=== PATIENT | male | born 1980 | race Caucasian/White ===

== ENCOUNTER 2019-03-16 13:02 | Emergency (ER) | payer OTHER ==
[2019-03-16 13:15] VITALS: BP 120/83; PULSE 62; TEMP 98.3; BMI 25.1
[2019-03-16] MEDS ORDERED: DIPHTH,PERTUSS(ACELL),TET 0.5 ML DISP.SYRIN IM ONE ×2 (13:17→13:32)
--- NOTE | 2019-03-16 13:17 | PDOC ---
History of Present Illness - General Chief Complaint: Injury Stated Complaint: LEFT HAND INJURY Time Seen by Provider: 03/16/19 13:06 History Source: Patient Exam Limitations: No Limitations - History of Present Illness Initial Comments: 39 yo M presents with L hand pain s/p injury at work yesterday. He states that he fell, landed with his left hand on a piece of steel. He sustained a laceration to the L 4th finger. He has kept it clean with soap and water. Today he noted that his knuckles and 3rd/4th fingers are swollen, so he presented for evaluation. He is able to move his fingers. He took ibuprofen for pain. Uncertain of last tetanus booster. Past History - Past Medical History Allergies/Adverse Reactions: Allergies Allergy/AdvReac Type Severity Reaction Status Date / Time No Known Allergies Allergy Verified 03/16/19 13:08 Home Medications: Ambulatory Orders No Home Medications 0 dose .ROUTE UTDICT 10/04/13 Cephalexin Monohydrate [Keflex -] 500 mg PO Q6H #28 capsule 03/16/19 Sulfamethoxazole/Trimethoprim [Bactrim Ds -] 1 tab PO BID #14 tablet 03/16/19 Asthma: No COPD: No Diabetes: No HTN: No - Immunization History Immunization Up to Date: Yes - Suicide/Smoking/Psychosocial Hx Smoking Status: Yes Smoking History: Current some day smoker Years of Tobacco Use: 8 Number of Cigarettes Smoked Daily: 0 Information on smoking cessation initiated: Yes 'Breaking Loose' booklet given: 10/04/13 Hx Alcohol Use: Yes (OCCASIONAL) Drug/Substance Use Hx: No Substance Use Type: None Review of Systems - Review of Systems Able to Perform ROS?: Yes Comments:: GENERAL/CONSTITUTIONAL: No fever or chills. No weakness. HEAD, EYES, EARS, NOSE AND THROAT: No change in vision. No ear pain or discharge. No sore throat. CARDIOVASCULAR: No chest pain or shortness of breath. RESPIRATORY: No cough, wheezing, or hemoptysis. GASTROINTESTINAL: No nausea, vomiting, diarrhea or constipation. GENITOURINARY: No dysuria, frequency, or change in urination. MUSCULOSKELETAL: +L hand swelling with skin abrasion. No neck or back pain. SKIN: No rash. NEUROLOGIC: No headache, vertigo, loss of consciousness, or change in strength/ sensation. ENDOCRINE: No increased thirst. No abnormal weight change. HEMATOLOGIC/LYMPHATIC: No anemia, easy bleeding, or history of blood clots. ALLERGIC/IMMUNOLOGIC: No hives or skin allergy. *Physical Exam - Vital Signs Last Vital Signs Temp Pulse Resp BP Pulse Ox 98.3 F 62 16 120/83 99 03/16/19 13:04 03/16/19 13:04 03/16/19 13:04 03/16/19 13:04 03/16/19 13:04 - Physical Exam Comments: GENERAL: Awake, alert, and fully oriented, in no acute distress HEAD: No signs of trauma EXTREMITIES: L hand with linear skin avulsion to the 4th finger, no drainage. + Edema to the 4th finger and to the 3rd and 4th MCP joints with slight erythema. Dec ROM of 3rd and 4th finger due to swelling. Remainder of extremities with normal range of motion, no edema. No clubbing or cyanosis. No cords, erythema, or tenderness NEUROLOGICAL: Cranial nerves II through XII grossly intact. Normal speech, normal gait. Motor and sensation intact SKIN: Warm, Dry, normal turgor, no rashes or lesions noted. ED Treatment Course - RADIOLOGY Radiology Studies Ordered: Category Date Time Status HAND- LEFT [RAD] Stat Radiology 03/16/19 13:15 Ordered Medical Decision Making - Medical Decision Making Tdap given in ED. Swelling is likely a localized infection, as he was cut by a piece of steel. There is no puncture wound, but there is a linear skin avulsion that has started to form some granulation tissue. Bacitracin applied, gauze dressing. PO abx given to cover skin lauro and MRSA. I do not suspect tenosynovitis at this time, as he is able to range the finger and it is not locked in 1 position. Counseled him to return if the swelling worsens, does not improve, or if he develops lymphatic streaking. *DC/Admit/Observation/Transfer Diagnosis at time of Disposition: Wound infection Cellulitis Qualifiers: Site of cellulitis: extremity Site of cellulitis of extremity: finger Laterality: left Qualified Code(s): L03.012 - Cellulitis of left finger - Discharge Dispostion Disposition: HOME Condition at time of disposition: Stable Decision to Admit order: No - Prescriptions Prescriptions: Cephalexin Monohydrate [Keflex -] 500 mg PO Q6H #28 capsule Sulfamethoxazole/Trimethoprim [Bactrim Ds -] 1 tab PO BID #14 tablet - Referrals - Patient Instructions Printed Discharge Instructions: DI for Cellulitis -- Adult, DI for Wound Infection - Post Discharge Activity Forms/Work/School Notes: Back to Work
[2019-03-16] MEDS ORDERED: SULFAMETHOXAZOLE/TRIMETHOPRIM 800MG/160MG D.S. TABLET PO ONE (13:41)
[2019-03-16] MEDS ORDERED: CEPHALEXIN MONOHYDRATE 500 MG CAPSULE (UD) PO ONE (13:41)
[2019-03-16] MEDS ORDERED: CEPHALEXIN MONOHYDRATE 500 MG CAPSULE (UD) ONE (13:45)
[2019-03-16] MEDS ORDERED: SULFAMETHOXAZOLE/TRIMETHOPRIM 800MG/160MG D.S. TABLET ONE (13:45)
== END 2019-03-16 13:52 | disposition home or self-care (01) ==
LOC: FER 13:02
PROC: 3E0234Z Introduction of Serum, Toxoid and Vaccine into Muscle, Percutaneous Approach (ICD-10-PCS; principal; 2019-03-16)
DX: S61.215A Laceration without foreign body of left ring finger without damage to nail, initial encounter (principal); L03.012 Cellulitis of left finger; L08.9 Local infection of the skin and subcutaneous tissue, unspecified; W18.00XA Striking against unspecified object with subsequent fall, initial encounter; Y93.89 Activity, other specified; Y92.89 Other specified places as the place of occurrence of the external cause; Y99.0 Civilian activity done for income or pay; F17.210 Nicotine dependence, cigarettes, uncomplicated
CPT/HCPCS: 73130-TC-LT-FY; 90715; 99281-25

== ENCOUNTER 2022-03-01 16:20 | Emergency (ER) | payer OTHER ==
[2022-03-01] MEDS ORDERED: SODIUM CHLORIDE 0.9% 500 ML INFUS.BAG IV ONE (16:40)
[2022-03-01] MEDS ORDERED: MAG HYDROX/AL HYDROX/SIMETH 30 ML UNIT-DOSE CUP PO ONE (16:50)
[2022-03-01] MEDS ORDERED: FAMOTIDINE 20 MG TABLET PO ONE (16:50)
[2022-03-01] MEDS ORDERED: FAMOTIDINE 20 MG/50 ML IVPB 20 MG/50 ML MG IVPB ONE ×2 (16:51→16:56)
[2022-03-01 16:52] VITALS: BMI 22.9
[2022-03-01] MEDS ORDERED: MAG HYDROX/AL HYDROX/SIMETH 30 ML UNIT-DOSE CUP ONE (16:55)
[2022-03-01 17:14] LABS: HEMATOCRIT 44.3 % (35.4-49); HEMOGLOBIN 15.5 G/dL (11.7-16.9); MCH 30.4 pg (25.7-33.7); MCHC 34.9 g/dl (32.0-35.9); MEAN CELL VOLUME 87.1 fl (80-96); MEAN PLT VOLUME 8.7 fl (7.5-11.1); PLATELET COUNT 211.1 10^3/uL (134-434); RBC 5.09 10^6/uL (4.00-5.60); WHITE BLOOD COUNT 4.5 10^3/uL (4.0-10.8)
[2022-03-01 17:22] LABS: INR 1.07 (0.83-1.09); PROTHROMBIN TIME (PATIENT) 12.3 SEC (9.7-13.0)
[2022-03-01 17:28] LABS: ALBUMIN 4.5 g/dl (3.4-5.0); BILIRUBIN,TOTAL 2.3 mg/dl (0.2-1); CALCIUM 9.4 mg/dl (8.5-10); MAGNESIUM 2.1 mg/dL (1.8-2.4); TOT PROT 7.2 g/dl (6.4-8.2)
[2022-03-01 17:42] LABS: PLATELET ESTIMATE ADEQUATE
[2022-03-01 18:54] VITALS: BP 117/62; PULSE 65; TEMP 98.6
== END 2022-03-01 19:00 | disposition home or self-care (01) ==
LOC: FER 16:20
PROC: 3E033GC Introduction of Other Therapeutic Substance into Peripheral Vein, Percutaneous Approach (ICD-10-PCS; principal; 2022-03-01)
DX: K80.20 Calculus of gallbladder without cholecystitis without obstruction (principal); K80.50 Calculus of bile duct without cholangitis or cholecystitis without obstruction
CPT/HCPCS: 36415; 76705-TC; 80053; 81003; 83690; 83735; 85025; 85610; 85730; 86850; 86900; 86901; 87086; 99284-25

== ENCOUNTER 2022-03-10 04:04 | Day surgery (SDC) | payer OTHER ==
[2022-03-07 11:46] VITALS: BMI 22.9
[2022-03-10] MEDS ORDERED: BUPIVACAINE HCL/PF 0.5% (5MG/ML) 10 ML VIAL ONE (11:43)
[2022-03-10] MEDS ORDERED: ACETAMINOPHEN INJECTION 100 ML IVPB ONE ×2 (12:09→17:25)
[2022-03-10] MEDS ORDERED: MIDAZOLAM HCL 2 MG/2 ML SINGLE DOSE VIAL ONE (12:14)
[2022-03-10] MEDS ORDERED: SUCCINYLCHOLINE CHLORIDE 200 MG/10 ML SYRINGE ONE (12:26)
[2022-03-10] MEDS ORDERED: PROPOFOL 20 ML ONE ×2 (12:26)
[2022-03-10] MEDS ORDERED: ROCURONIUM BROMIDE 50 MG/5 ML SYRINGE ONE (12:27)
[2022-03-10] MEDS ORDERED: KETAMINE HCL 200 MG/20 ML VIAL ONE (12:29)
[2022-03-10] MEDS ORDERED: ceFAZolin SODIUM 1 GM VIAL IVPB ONE (12:46)
[2022-03-10] MEDS ORDERED: NEOSTIGMINE METHYLSULFATE 0.5 MG/ML - 10 ML MDV ONE (13:04)
[2022-03-10] MEDS ORDERED: BUPIVACAINE HCL/PF 0.5% (5MG/ML) 10 ML VIAL NR ONE ×2 (13:33)
[2022-03-10] MEDS ORDERED: ONDANSETRON 4 MG/2 ML VIAL IVPUSH PRN (17:17)
[2022-03-10] MEDS ORDERED: oxyCODONE HCL 5 MG TABLET PO PRN (17:17)
[2022-03-10] MEDS ORDERED: ACETAMINOPHEN 325 MG TABLET (FP) PO ONE (17:18)
[2022-03-10] MEDS ORDERED: oxyCODONE HCL 5 MG TABLET ONE (17:19)
[2022-03-10] MEDS ORDERED: LACTATED RINGERS SOLUTION 1,000 ML IV SCH (17:30)
[2022-03-10] MEDS ORDERED: ACETAMINOPHEN 325 MG TABLET (FP) ONE (17:33)
[2022-03-10 17:56] VITALS: BP 127/82; PULSE 60; TEMP 99.2
== END 2022-03-10 18:09 | disposition home or self-care (01) ==
LOC: JASU-SURG 04:04
PROVIDERS: ATTEND Surgery
PROC: 0FT44ZZ Resection of Gallbladder, Percutaneous Endoscopic Approach (ICD-10-PCS; principal; 2022-03-10 12:00)
DX: K80.10 Calculus of gallbladder with chronic cholecystitis without obstruction (principal)
CPT/HCPCS: 88304-TC; 94760

== ENCOUNTER 2024-01-08 20:11 | Emergency (ER) | payer OTHER ==
[2024-01-08 20:23] VITALS: BP 129/78; PULSE 86; RESP 18; BMI 24.3
== END 2024-01-08 22:36 | disposition home or self-care (01) ==
LOC: FER 20:11
DX: M79.661 Pain in right lower leg (principal); R22.41 Localized swelling, mass and lump, right lower limb; M71.21 Synovial cyst of popliteal space [Baker], right knee
CPT/HCPCS: 93971-TC; 99284-25